=== PATIENT | female | born 1995 | race Caucasian/White ===

== ENCOUNTER 2016-02-06 17:03 | Emergency (ER) | payer OTHER ==
[~2016-02-06] VITALS: Ht 154.9 cm; Wt 121.0 kg
[~2016-02-06 17:03] MED LIST: ANAPROX DS550 M1 PO; FLEXERIL10 MG PO; FLEXERIL5 MG PO; JUNEL FE 1/21 TABLET PO; KLONOPIN0.5 M1 PO; LEXAPRO20 MG PO; MECLIZINE HCL25 MG PO; MOBIC7.5 MG PO; MOTRIN600 MG PO; MOTRIN800 MG PO; OMEPRAZOLE20 MG PO; ORTHO EVRA PA1 PATCH TP; PRILOSEC40 MG PO; PYRIDIUM100 MG PO; SERTRALINE HCL100 MG PO; VISTARIL25 MG PO; XULANE PATCH1 EACH TD; ZOFRAN ODT4 MG PO; ZOFRAN4 MG PO; ZOLOFT100 MG PO; ZOLOFT50 M1
[2016-02-06 18:34] LABS: HEMATOCRIT 45.8 % (36.0-46.0); MCV 81.9 FL (83-99); MEAN PLAT.VOLUME 9.3 uM^3 (9.5-12.4); PLATELET COUNT 340 K/uL (156-360); RBC DIS.WIDTH-CV 14.8 % (11.8-14.6); RBC DIS.WIDTH-SD 44.5 % (39-53); RED BLOOD COUNT 5.59 M/uL (3.80-5.20); WHITE BLOOD COUNT 10.5 K/uL (4.1-10.2)
[2016-02-06 18:50] LABS: CHLORIDE 105 mEq/L (99-109); SODIUM 139 mEq/L (136-147)
[2016-02-06 18:52] LABS: GLUCOSE 96 mg/dL (70-99)
[2016-02-06 18:53] LABS: ANION GAP 14 MEQ/L (2-14)
[2016-02-06 18:55] LABS: GFR ESTIMATE (CALCULATED) > 59 mL/min/; SERUM ETHYL ALCOHOL < 10 mg/dL
[2016-02-06 18:56] LABS: UREA NITROGEN (BUN) 14 mg/dL (9-23)
[2016-02-06 19:03] LABS: QUANTITATIVE HCG < 4.0 MIU/ML
[2016-02-06 19:05] LABS: AMPHETAMINE NEGATIVE (500 ng/mL); BARBITURATES NEGATIVE (200 ng/mL); BENZODIAZEPINES NEGATIVE (150 ng/mL); COCAINE NEGATIVE (150 ng/mL); INTERNAL CONTROLS VALID? YES; METHADONE NEGATIVE (200 ng/mL); METHAMPHETAMINE NEGATIVE (500 ng/mL); OPIATES (MORPHINE) NEGATIVE (100 ng/mL); OXYCODONE NEGATIVE (100 ng/mL); PHENCYCLIDINE NEGATIVE (25 ng/mL); PROPOXYPHENE NEGATIVE (300 ng/mL); THC CANNABINOIDS NEGATIVE (50 ng/mL); TRICYCLIC ANTIDEPRESSANTS NEGATIVE (300 ng/mL)
[2016-02-06] MEDS ORDERED: ATARAX,VISTARIL25 MG PO (20:42)
[2016-02-06 20:52] VITALS: BP 124/84
== END 2016-02-06 20:53 | disposition home or self-care (01) ==
LOC: EME 17:03
PROVIDERS: Emergency Medicine
DX: F41.9 Anxiety disorder, unspecified (principal); R45.851 Suicidal ideations; F33.2 Major depressive disorder, recurrent severe without psychotic features; F43.22 Adjustment disorder with anxiety; F43.10 Post-traumatic stress disorder, unspecified; Z87.891 Personal history of nicotine dependence
CPT/HCPCS: 80048; 84702; 85027; 90839; 99281; 99285; G0480; Q0177

== ENCOUNTER 2016-06-03 01:26 | Emergency (ER) | payer OTHER ==
[~2016-06-03] VITALS: Ht 154.9 cm; Wt 119.7 kg
[~2016-06-03 01:26] MED LIST changes: +ATARAX,VISTARIL25 MG PO
[2016-06-03 02:03] LABS: ADD MIUA? YES; BILIRUBIN NEGATIVE; BLOOD MODERATE; COLOR YELLOW ((YELLOW)); GLUCOSE (STRIP) NEGATIVE; KETONES NEGATIVE; LEUKOCYTES MODERATE; NITRITE NEGATIVE; PROTEIN (STRIP) 100; SPECIFIC GRAVITY 1.017 (1.000-1.030); UROBILINOGEN 0.2 MG/DL (0.2-1.0)
[2016-06-03 02:24] LABS: BACTERIA 1+ /HPF; EPITHELIAL CELLS RARE /HPF; MUCUS TRACE /LPF; RED BLOOD CELLS TNTC /HPF (0-5); UCUL ADDED? YES; WHITE BLOOD CELLS TNTC /HPF (0-5)
[2016-06-03] MEDS ORDERED: KEFLEX500 MG PO (03:01)
[2016-06-03] MEDS ORDERED: NORCO 5/3251 TABLET PO (03:01)
[2016-06-03] MEDS ORDERED: PYRIDIUM200 MG PO (03:01)
[2016-06-03 03:20] VITALS: BP 115/77
== END 2016-06-03 03:21 | disposition home or self-care (01) ==
LOC: EME 01:26
DX: N39.0 Urinary tract infection, site not specified (principal); Z87.440 Personal history of urinary (tract) infections; Z87.891 Personal history of nicotine dependence
CPT/HCPCS: 81003; 87086; 99281; 99283

== ENCOUNTER 2016-06-06 23:30 | Emergency (ER) | payer OTHER ==
[~2016-06-06] VITALS: Ht 154.9 cm; Wt 119.7 kg
[~2016-06-06 23:30] MED LIST changes: +KEFLEX500 MG PO; +NORCO 5/3251 TABLET PO; +PYRIDIUM200 MG PO
[2016-06-07 00:17] LABS: HEMATOCRIT 39.5 % (36.0-46.0); MCH 27.1 PG (29.0-34.0); MCHC 31.9 G/DL (30.0-36.0); MCV 84.9 FL (83-99); MEAN PLAT.VOLUME 9.3 uM^3 (9.5-12.4); PLATELET COUNT 365 K/uL (156-360); RBC DIS.WIDTH-CV 13.9 % (11.8-14.6); RBC DIS.WIDTH-SD 42.9 % (39-53); RED BLOOD COUNT 4.65 M/uL (3.80-5.20); WHITE BLOOD COUNT 12.5 K/uL (4.1-10.2)
[2016-06-07 00:27] LABS: CHLORIDE 105 mEq/L (99-109); POTASSIUM 3.9 mEq/L (3.7-5.4); SODIUM 140 mEq/L (136-147)
[2016-06-07 00:29] LABS: GLUCOSE 104 mg/dL (70-99)
[2016-06-07 00:31] LABS: ANION GAP 11 MEQ/L (2-14)
[2016-06-07 00:33] LABS: GFR ESTIMATE (CALCULATED) > 59 mL/min/
[2016-06-07 00:34] LABS: UREA NITROGEN (BUN) 15 mg/dL (9-23)
[2016-06-07 00:41] LABS: QUANTITATIVE HCG < 4.0 MIU/ML
[2016-06-07 00:54] LABS: ADD MIUA? YES; BILIRUBIN NEGATIVE; BLOOD NEGATIVE; COLOR YELLOW ((YELLOW)); GLUCOSE (STRIP) NEGATIVE; KETONES NEGATIVE; LEUKOCYTES TRACE; NITRITE NEGATIVE; PROTEIN (STRIP) NEGATIVE; SPECIFIC GRAVITY 1.015 (1.000-1.030); UROBILINOGEN 0.2 MG/DL (0.2-1.0)
[2016-06-07 01:11] LABS: BACTERIA RARE /HPF; EPITHELIAL CELLS RARE /HPF; MUCUS TRACE /LPF; RED BLOOD CELLS 0-5 /HPF (0-5); UCUL ADDED? NO
[2016-06-07] MEDS ORDERED: SKELAXIN800 MG PO (01:46)
[2016-06-07 01:50] VITALS: BP 136/73
== END 2016-06-07 01:51 | disposition home or self-care (01) ==
LOC: EXP 23:30 → EME 23:30 → EXP 06-07 01:51
PROVIDERS: Physician Assistant
DX: R10.9 Unspecified abdominal pain (principal); N39.0 Urinary tract infection, site not specified; F17.200 Nicotine dependence, unspecified, uncomplicated; J45.909 Unspecified asthma, uncomplicated; F32.9 Major depressive disorder, single episode, unspecified; F41.9 Anxiety disorder, unspecified
CPT/HCPCS: 74176; 80048; 81003; 84702; 85027; 99281; 99284

== ENCOUNTER 2017-03-11 20:39 | Emergency (ER) | payer OTHER ==
[~2017-03-11] VITALS: Ht 154.9 cm; Wt 121.4 kg
[~2017-03-11 20:39] MED LIST changes: +SKELAXIN800 MG PO
[2017-03-11 21:48] LABS: HEMATOCRIT 42.5 % (36.0-46.0); HEMOGLOBIN 13.9 G/DL (11.9-15.5); MCH 27.4 PG (29.0-34.0); MCHC 32.7 G/DL (30.0-36.0); MCV 83.7 FL (83-99); PLATELET COUNT 300 K/uL (156-360); RBC DIS.WIDTH-CV 13.9 % (11.8-14.6); RBC DIS.WIDTH-SD 42.3 % (39-53); RED BLOOD COUNT 5.08 M/uL (3.80-5.20); WHITE BLOOD COUNT 9.9 K/uL (4.1-10.2)
[2017-03-11 21:55] LABS: ALBUMIN 3.9 g/dL (3.2-4.8); CHLORIDE 105 mEq/L (99-109); POTASSIUM 3.9 mEq/L (3.7-5.4); SODIUM 138 mEq/L (136-147)
[2017-03-11 21:58] LABS: GLUCOSE 113 mg/dL (70-99); TOTAL PROTEIN 7.7 g/dL (6.4-8.3)
[2017-03-11 21:59] LABS: TOTAL BILIRUBIN 0.7 mg/dL (0.0-1.0)
[2017-03-11 22:01] LABS: ALKALINE PHOSPHATASE 75 IU/L (3-129); CREATININE 0.8 mg/dL (0.6-1.3); GFR ESTIMATE (CALCULATED) > 59 mL/min/
[2017-03-11 22:02] LABS: UREA NITROGEN (BUN) 15 mg/dL (9-23)
[2017-03-11 22:03] LABS: AST (GOT) 22 IU/L (2-34)
[2017-03-11 22:04] LABS: ALT (GPT) 14 IU/L (3-49)
[2017-03-11 22:11] LABS: QUANTITATIVE HCG < 4.0 MIU/ML
[2017-03-12] LABS: APPEARANCE CLEAR ((CLEAR)); BILIRUBIN NEGATIVE; BLOOD NEGATIVE; COLOR YELLOW ((YELLOW)); GLUCOSE (STRIP) NEGATIVE; KETONES 20; LEUKOCYTES NEGATIVE; NITRITE NEGATIVE; PROTEIN (STRIP) NEGATIVE; SPECIFIC GRAVITY 1.017 (1.000-1.030); UCUL ADDED? NO; UROBILINOGEN 0.2 MG/DL (0.2-1.0)
[2017-03-12] MEDS ORDERED: ZOFRAN ODT8 MG PO (00:32)
[2017-03-12 00:47] VITALS: BP 113/73
== END 2017-03-12 00:48 | disposition home or self-care (01) ==
LOC: EME 20:39
DX: R11.2 Nausea with vomiting, unspecified (principal); J45.909 Unspecified asthma, uncomplicated; E16.2 Hypoglycemia, unspecified; F41.9 Anxiety disorder, unspecified; F32.9 Major depressive disorder, single episode, unspecified; F41.0 Panic disorder [episodic paroxysmal anxiety]; F17.200 Nicotine dependence, unspecified, uncomplicated; Z88.5 Allergy status to narcotic agent; Z88.2 Allergy status to sulfonamides; Z88.8 Allergy status to other drugs, medicaments and biological substances
CPT/HCPCS: 80053; 81003; 84702; 85027; 99281; 99285; J7030

== ENCOUNTER 2017-08-13 13:08 | Emergency (ER) | payer OTHER ==
[~2017-08-13] VITALS: Ht 154.9 cm; Wt 124.1 kg
[~2017-08-13 13:08] MED LIST changes: +ZOFRAN ODT8 MG PO
[2017-08-13 13:58] LABS: APPEARANCE CLEAR ((CLEAR)); BILIRUBIN NEGATIVE; BLOOD NEGATIVE; COLOR STRAW ((YELLOW)); GLUCOSE (STRIP) NEGATIVE; KETONES NEGATIVE; LEUKOCYTES TRACE; NITRITE NEGATIVE; PROTEIN (STRIP) NEGATIVE; SPECIFIC GRAVITY 1.004 (1.000-1.030); UROBILINOGEN 0.2 MG/DL (0.2-1.0)
[2017-08-13 14:01] LABS: BACTERIA RARE /HPF; EPITHELIAL CELLS RARE /HPF; MUCUS NONE SEEN /LPF; RED BLOOD CELLS 0-5 /HPF (0-5); UCUL ADDED? NO; WHITE BLOOD CELLS 0-5 /HPF (0-5)
[2017-08-13 14:24] LABS: HEMATOCRIT 42.8 % (36.0-46.0); HEMOGLOBIN 13.9 G/DL (11.9-15.5); MCH 27.9 PG (29.0-34.0); MCHC 32.5 G/DL (30.0-36.0); MCV 85.9 FL (83-99); PLATELET COUNT 350 K/uL (156-360); RBC DIS.WIDTH-CV 13.5 % (11.8-14.6); RBC DIS.WIDTH-SD 42.3 % (39-53); RED BLOOD COUNT 4.98 M/uL (3.80-5.20)
[2017-08-13 14:59] LABS: CHLORIDE 103 MEQ/L (99-109); POTASSIUM 4.5 MEQ/L (3.7-5.4); SODIUM 138 MEQ/L (136-147); TOTAL BILIRUBIN 0.4 MG/DL (0.0-1.0)
[2017-08-13 15:04] LABS: ALKALINE PHOSPHATASE 68 IU/L (3-129); ALT (GPT) 19 IU/L (3-49); AST (GOT) 20 IU/L (2-34); CREATININE 0.8 MG/DL (0.6-1.3); GFR ESTIMATE (CALCULATED) > 59 mL/min/; GLUCOSE 81 mg/dL (70-99); TOTAL PROTEIN 7.5 G/DL (6.4-8.3); UREA NITROGEN (BUN) 15 mg/dL (9-23)
[2017-08-13 15:23] LABS: QUANTITATIVE HCG < 4.0 MIU/ML
[2017-08-13] MEDS ORDERED: ZOFRAN ODT8 MG PO (16:58)
[2017-08-13] MEDS ORDERED: MECLIZINE HCL25 MG PO (16:58)
[2017-08-13 17:07] VITALS: BP 122/94
== END 2017-08-13 17:08 | disposition home or self-care (01) ==
LOC: EME 13:08
DX: R42 Dizziness and giddiness (principal); R11.2 Nausea with vomiting, unspecified; J45.909 Unspecified asthma, uncomplicated; F32.9 Major depressive disorder, single episode, unspecified; F41.9 Anxiety disorder, unspecified; F17.200 Nicotine dependence, unspecified, uncomplicated; Z88.5 Allergy status to narcotic agent; Z88.2 Allergy status to sulfonamides; Z88.6 Allergy status to analgesic agent; Z88.1 Allergy status to other antibiotic agents; Z88.8 Allergy status to other drugs, medicaments and biological substances
CPT/HCPCS: 80053; 81003; 84702; 85027; 93005; 99281; 99284

== ENCOUNTER 2017-08-16 | Emergency (ER) | payer OTHER ==
[~2017-08-16] VITALS: Ht 154.9 cm; Wt 124.4 kg
[2017-08-16 00:59] LABS: HEMATOCRIT 40.1 % (36.0-46.0); HEMOGLOBIN 13.1 G/DL (11.9-15.5); MCH 28.1 PG (29.0-34.0); MCHC 32.7 G/DL (30.0-36.0); MCV 85.9 FL (83-99); PLATELET COUNT 351 K/uL (156-360); RBC DIS.WIDTH-CV 13.6 % (11.8-14.6); RBC DIS.WIDTH-SD 42.1 % (39-53); RED BLOOD COUNT 4.67 M/uL (3.80-5.20); WHITE BLOOD COUNT 11.2 K/uL (4.1-10.2)
[2017-08-16 01:12] LABS: ALBUMIN 3.8 g/dL (3.2-4.8)
[2017-08-16 01:13] LABS: CHLORIDE 104 mEq/L (99-109); SODIUM 139 mEq/L (136-147)
[2017-08-16 01:15] LABS: GLUCOSE 89 mg/dL (70-99); TOTAL PROTEIN 7.3 g/dL (6.4-8.3)
[2017-08-16 01:17] LABS: TOTAL BILIRUBIN 0.4 mg/dL (0.0-1.0)
[2017-08-16 01:18] LABS: ALKALINE PHOSPHATASE 74 IU/L (3-129)
[2017-08-16 01:19] LABS: CREATININE 0.9 mg/dL (0.6-1.3); GFR ESTIMATE (CALCULATED) > 59 mL/min/
[2017-08-16 01:20] LABS: AST (GOT) 18 IU/L (2-34); UREA NITROGEN (BUN) 16 mg/dL (9-23)
[2017-08-16 01:21] LABS: ALT (GPT) 18 IU/L (3-49)
[2017-08-16 01:22] LABS: LIPASE 35 U/L (1.0-51.0)
[2017-08-16 01:30] LABS: QUANTITATIVE HCG < 4.0 MIU/ML
[2017-08-16 02:53] LABS: APPEARANCE CLEAR ((CLEAR)); BILIRUBIN NEGATIVE; BLOOD NEGATIVE; COLOR YELLOW ((YELLOW)); GLUCOSE (STRIP) NEGATIVE; KETONES NEGATIVE; LEUKOCYTES TRACE; NITRITE NEGATIVE; PROTEIN (STRIP) NEGATIVE; UROBILINOGEN 0.2 MG/DL (0.2-1.0)
[2017-08-16 03:00] LABS: BACTERIA RARE /HPF; EPITHELIAL CELLS 1+ /HPF; MUCUS TRACE /LPF; RED BLOOD CELLS 0-5 /HPF (0-5); WHITE BLOOD CELLS 0-5 /HPF (0-5)
[2017-08-16] MEDS ORDERED: REGLAN10 MG PO (04:19)
[2017-08-16] MEDS ORDERED: MOTRIN800 MG PO (04:19)
[2017-08-16] MEDS ORDERED: KEFLEX500 MG PO (04:21)
[2017-08-16] MEDS ORDERED: FLONASE16 G1 BOTH NARES (04:21)
[2017-08-16 04:46] VITALS: BP 154/99
== END 2017-08-16 04:46 | disposition home or self-care (01) ==
LOC: EME → RME
PROVIDERS: Physician Assistant
DX: R51 Headache (principal); R55 Syncope and collapse; J32.9 Chronic sinusitis, unspecified; J45.909 Unspecified asthma, uncomplicated; K21.9 Gastro-esophageal reflux disease without esophagitis; F41.9 Anxiety disorder, unspecified; F32.9 Major depressive disorder, single episode, unspecified; F17.200 Nicotine dependence, unspecified, uncomplicated; Z88.2 Allergy status to sulfonamides; Z88.5 Allergy status to narcotic agent; Z88.1 Allergy status to other antibiotic agents; Z88.6 Allergy status to analgesic agent; Z88.8 Allergy status to other drugs, medicaments and biological substances
CPT/HCPCS: 70450; 80053; 81003; 83690; 84702; 85027; 99281; 99284

== ENCOUNTER 2017-08-18 10:58 | Emergency (ER) | payer OTHER ==
[~2017-08-18] VITALS: Ht 154.9 cm; Wt 123.7 kg
[~2017-08-18 10:58] MED LIST changes: +FLONASE16 G1 BOTH NARES; +REGLAN10 MG PO
[2017-08-18 11:44] LABS: HEMOGLOBIN 13.1 G/DL (11.9-15.5); MCH 28.1 PG (29.0-34.0); MCHC 32.8 G/DL (30.0-36.0); MCV 85.7 FL (83-99); PLATELET COUNT 327 K/uL (156-360); RBC DIS.WIDTH-CV 13.7 % (11.8-14.6); RBC DIS.WIDTH-SD 42.7 % (39-53); RED BLOOD COUNT 4.67 M/uL (3.80-5.20); WHITE BLOOD COUNT 8.8 K/uL (4.1-10.2)
[2017-08-18 12:02] LABS: CHLORIDE 106 mEq/L (99-109); POTASSIUM 4.2 mEq/L (3.7-5.4); SODIUM 140 mEq/L (136-147)
[2017-08-18 12:04] LABS: GLUCOSE 102 mg/dL (70-99)
[2017-08-18 12:08] LABS: CREATININE 0.8 mg/dL (0.6-1.3); GFR ESTIMATE (CALCULATED) > 59 mL/min/
[2017-08-18 12:09] LABS: UREA NITROGEN (BUN) 14 mg/dL (9-23)
[2017-08-18 14:28] LABS: TROP-I INTERPRETATION NEGATIVE; TROPONIN-I < 0.01 ng/mL (0.0-0.30)
[2017-08-18 14:42] VITALS: BP 140/91
[2017-08-18] MEDS ORDERED: ZOFRAN ODT8 MG PO (16:13)
[2017-08-18] MEDS ORDERED: FLONASE16 G1 BOTH NARES (16:16)
[2017-08-18] MEDS ORDERED: BRINTELLIX20 MG PO (16:17)
[2017-08-18] MEDS ORDERED: INDERAL40 MG PO (16:20)
[2017-08-18] MEDS ORDERED: KEFLEX500 MG PO (16:22)
== END 2017-08-18 16:49 | disposition left against medical advice (07) ==
LOC: EME 10:58 → EDOF 15:10 → EME 15:10 → CANRESERV 15:13 → ENRESERV 15:13
DX: R55 Syncope and collapse (principal); R42 Dizziness and giddiness; R51 Headache; F41.9 Anxiety disorder, unspecified; J45.909 Unspecified asthma, uncomplicated; F32.9 Major depressive disorder, single episode, unspecified; F17.200 Nicotine dependence, unspecified, uncomplicated; Z88.5 Allergy status to narcotic agent; Z88.2 Allergy status to sulfonamides
CPT/HCPCS: 71046; 80048; 84484; 85027; 93005; 99281; 99285; J0780; J1885; J7120